=== PATIENT | female | born 1995 | race Caucasian/White ===

== ENCOUNTER 2017-09-15 03:19 | Emergency (ER) | payer OTHER ==
[~2017-09-15] VITALS: Ht 167.6 cm; Wt 74.8 kg
[2017-09-15 03:28] VITALS: BP 128/80
[2017-09-15] MEDS ORDERED: BACTRIM DS TAB1 EACH PO ×2 (04:09→04:11)
== END 2017-09-15 04:37 | disposition home or self-care (01) ==
LOC: ER 03:19
DX: L02.415 Cutaneous abscess of right lower limb (principal); F17.210 Nicotine dependence, cigarettes, uncomplicated